=== PATIENT | male | born 1970 | race American Indian/Alaskan Native ===

== ENCOUNTER 2019-10-01 12:45 | Emergency (ER) | payer SELFPAY ==
[2019-10-01 13:12] VITALS: BP 164/94
== END 2019-10-01 13:15 | disposition left against medical advice (07) ==
LOC: ED 12:45
DX: R03.0 Elevated blood-pressure reading, without diagnosis of hypertension (principal); Z53.21 Procedure and treatment not carried out due to patient leaving prior to being seen by health care provider